=== PATIENT | female | born 1955 | race Caucasian/White ===

== ENCOUNTER → 2018-09-08 | Outpatient (CLI) | payer BC ==
[2018-09-08 17:46] LABS: BASO % 0.6 % (0.0-1.0); EOS # 0.1 10^3/uL (0.0-0.50); EOS % 1.5 % (0.0-3.0); HEMATOCRIT 39.2 % (36.0-47.0); HEMOGLOBIN 13.7 g/dl (12.0-15.5); LYMPH # 1.9 10^3/uL (1.5-4.5); LYMPH % 34.5 % (24.0-44.0); MEAN CORPUSCULAR HGB CONC 34.9 g/dl (32.0-36.5); MEAN CORPUSCULAR VOLUME 97.3 fl (80.0-96.0); MONO # 0.6 10^3/uL (0.0-0.8); MONO % 10.1 % (0.0-5.0); NEUTROPHILS # 2.9 10^3/uL (1.8-7.7); NEUTROPHILS % 53.1 % (36.0-66.0); PLATELET COUNT, AUTOMATED 220 10^3/uL (150-450); RED BLOOD COUNT 4.03 10^6/uL (4.00-5.40); WHITE BLOOD COUNT 5.4 10^3/uL (4.0-10.0)
[2018-09-08 18:14] LABS: ALBUMIN 4.2 GM/DL (3.2-5.2); ALT/SGPT 45 U/L (12-78); BILIRUBIN,TOTAL 0.5 MG/DL (0.2-1.0); BLOOD UREA NITROGEN 24 MG/DL (7-18); CALCIUM LEVEL 9.6 MG/DL (8.8-10.2); CARBON DIOXIDE LEVEL 27 MEQ/L (21-32); CHLORIDE LEVEL 105 MEQ/L (98-107); CREATININE FOR GFR 1.32 MG/DL (0.55-1.30); GLOMERULAR FILTRATION RATE 43.7 (>45); GLUCOSE, FASTING 82 MG/DL (70-100); IRON (FE) 69 UG/DL (50-170); PERCENT SATURATION 24.3 % (13.2-45.0); SODIUM LEVEL 139 MEQ/L (136-145); TOTAL IRON BINDING CAPACITY 284 UG/DL (250-450); TOTAL PROTEIN 7.2 GM/DL (6.4-8.2)
[2018-09-09 09:42] LABS: HEPATITIS B SURFACE ANTIGEN NEGATIVE (NEGATIVE)
[2018-09-09 10:10] LABS: HEPATITIS B CORE ANTIBODY IGM NEGATIVE (NEGATIVE)
[2018-09-09 10:11] LABS: HEPATITIS A ANTIBODY IGM NEGATIVE (NEGATIVE)
[2018-09-12 00:07] LABS: ANCA-ATYPICAL <1:20 titer (Neg:<1:20); ANTI DOUBLE STRAND-DNA AB <1 IU/mL (0-9); ANTI-MITOCHONDRIAL ANTIBODY <20.0 Units (0.0-20.0); ANTINUCLEAR ANTIBODIES DIRECT Positive (Negative); CERULOPLASMIN 29.4 mg/dL (19.0-39.0); CYTOPLASMIC NEUTROP AB ANCA-C <1:20 titer (Neg:<1:20); LIVER-KIDNEY MICROSOMAL ABY <20.1 Units (0.0-20.0); PERINUCLEAR AB ANCA-P <1:20 titer (Neg:<1:20); RNP ANTIBODIES <0.2 AI (0.0-0.9); SJOGREN'S ANTI SS-A <0.2 AI (0.0-0.9); SJOGREN'S ANTI SS-B <0.2 AI (0.0-0.9); SMITH ANTIBODIES 0.3 AI (0.0-0.9); TISSUE TRANSGLUTAMINASE IgA <2 U/mL (0-3)
== END ==
LOC: M LAB 16:26
PROVIDERS: ATTEND Internal Medicine Gastroenterology
DX: R94.5 Abnormal results of liver function studies (principal)

== ENCOUNTER → 2018-09-22 | Outpatient (CLI) | payer BC ==
--- NOTE | 2018-09-22 15:07 | REP ---
REASON: Abnormal LFTs. COMPARISON: None. Multiple ultrasonographic images of the liver show diffuse increased echoes throughout the hepatic parenchyma without evidence of mass or ductal dilatation. The common bile duct measures between 3 and 4 mm. Multiple ultrasonographic images of the gallbladder show no abnormalities. The imaged portion of the pancreas and right kidney shows no gross abnormalities. IMPRESSION: Fatty infiltration of the liver. Electronically Signed by Moisés Rondon DO 09/23/2018 10:38 A
== END ==
LOC: EDUNIT# 09-18 10:00 → M RAD 11:07
PROVIDERS: ATTEND Internal Medicine Gastroenterology
DX: K76.0 Fatty (change of) liver, not elsewhere classified (principal)

== ENCOUNTER 2018-10-23 06:34 | Day surgery (SDC) | payer BC ==
[~2018-10-23] VITALS: Ht 154.9 cm; Wt 89.4 kg
[~2018-10-23 06:34] MED LIST: ASPI81TA26 PO; DESC1TAB PO; LOSA50TA88 PO; MULTCAP PO; NORV100T PO; NS 1,000 ML IV ONE; PREZ600T3 PO; RALT40TA PO
[2018-10-23] MEDS ORDERED: LIDOCAINE 2% INJ 100 MG/5 ML SDV (FOR ANES.) As Ordered ONE (08:05)
[2018-10-23] MEDS ORDERED: PROPOFOL 500 MG/50 ML VIAL As Ordered ONE (08:05)
--- NOTE | 2018-10-23 08:37 | ROOR ---
Patient Name: Andie Muñiz Procedure Date: 10/23/2018 7:58 AM Date of : 1955 Age: 62 Room: [facility] Gender: Female Note Status: Finalized Procedure: Colonoscopy Indications: Screening for colorectal malignant neoplasm Providers: Raj TOUSSAINT MD Referring MD: Nickolas Mendoza DO Requesting Provider: Medicines: Monitored Anesthesia Care Complications: No immediate complications. Procedure: Pre-Anesthesia Assessment: - The heart rate, respiratory rate, oxygen saturations, blood pressure, adequacy of pulmonary ventilation, and response to care were monitored throughout the procedure. The Colonoscope was introduced through the sigmoid colostomy and advanced to 5 cm into the ileum. After completion of colonoscopy, the colonoscope was withdrawn and then introduced per rectum into the hartmans pouch. The colonoscopy and proctoscopy were performed without difficulty. The patient tolerated the procedure well. The quality of the bowel preparation was fair. Findings: The perianal and digital rectal examinations were normal. The recto-sigmoid colon appeared normal. There was evidence of a widely patent end colostomy in the sigmoid colon. This was characterized by healthy appearing mucosa. The exam was otherwise without abnormality. Impression: - Per Rectum:: - The pouch is a bit stenotic, but otherwise normal. - Per Colostomy: - Widely patent end colostomy with healthy appearing mucosa in the sigmoid colon. - The colon examination was normal. - No specimens collected. Recommendation: - Repeat colonoscopy in 5 years for screening purposes. - Repeat colonoscopy in 5 years because the bowel preparation was slightly suboptimal in a few areas. Raj Toussaint MD Raj TOUSSAINT MD 10/23/2018 8:37:13 AM Electronically signed by Raj TOUSSAINT MD Number of Addenda: 0 Note Initiated On: 10/23/2018 7:58 AM Estimated Blood Loss: Estimated blood loss: none.
[2018-10-23 08:40] VITALS: BP 153/91
== END 2018-10-23 09:05 | disposition home or self-care (01) ==
LOC: M OPP 06:34 → EDUNIT# 07:45 → M OPP 09:05
PROVIDERS: ATTEND Internal Medicine Gastroenterology
DX: Z12.11 Encounter for screening for malignant neoplasm of colon (principal); Z93.3 Colostomy status

== ENCOUNTER 2024-04-22 06:41 | Day surgery (SDC) | payer MEDICARE ==
[~2024-04-22] VITALS: Ht 154.9 cm; Wt 86.4 kg
[~2024-04-22 06:41] MED LIST changes: +BIKT1TAB PO; +LOSA50TA28 PO; -LOSA50TA88 PO; -NS 1,000 ML IV ONE; +NS 250 ML IV ONE; +POTA99CA2 PO; +PREZ1TAB PO; +SEMA2PEN SQ; +SPIR-10 PO
[2024-04-22] MEDS ORDERED: propofoL 200 MG/20 ML VIAL As Ordered ONE (08:05)
[2024-04-22] MEDS ORDERED: LIDOCAINE 2% 100MG/5ML SDV (FOR ANES.) As Ordered ONE (08:05)
[2024-04-22 08:25] VITALS: TEMP 98.3
[2024-04-22 08:43] VITALS: BP 120/80; O2SAT 97
== END 2024-04-22 08:48 | disposition home or self-care (01) ==
LOC: M OPP 06:41
PROVIDERS: ATTEND Internal Medicine Gastroenterology
DX: D12.2 Benign neoplasm of ascending colon (principal); Z86.0100 Personal history of colon polyps, unspecified; I10 Essential (primary) hypertension; E11.9 Type 2 diabetes mellitus without complications; M19.90 Unspecified osteoarthritis, unspecified site; Z88.0 Allergy status to penicillin; Z88.2 Allergy status to sulfonamides; Z79.85 Long-term (current) use of injectable non-insulin antidiabetic drugs; Z79.899 Other long term (current) drug therapy